=== PATIENT | male | born 1980 | race Two or more races ===

== ENCOUNTER 2020-10-22 11:20 | Emergency (ER) | payer SELFPAY ==
[~2020-10-22] VITALS: Ht 170.2 cm; Wt 71.9 kg
[2020-10-22] MEDS ORDERED: DEXAMETHASONE 4 MG/ML, 1ML ONE (15:29)
[2020-10-22] MEDS ORDERED: DEXAMETHASONE 4 MG/ML, 1ML PO ONE (15:30)
[2020-10-22 16:21] VITALS: BP 116/78
== END 2020-10-22 16:22 | disposition home or self-care (01) ==
LOC: ED 16:15
DX: T17.298A Other foreign object in pharynx causing other injury, initial encounter (principal); T17.398A Other foreign object in larynx causing other injury, initial encounter; R07.9 Chest pain, unspecified; X58.XXXA Exposure to other specified factors, initial encounter; Y93.89 Activity, other specified; Y92.89 Other specified places as the place of occurrence of the external cause; Y99.8 Other external cause status
CPT/HCPCS: 70360; 71045; 99284; J1100; 99283